=== PATIENT | male | born 1980 | race Caucasian/White ===

== ENCOUNTER 2023-12-29 13:37 | Inpatient (IN) | payer OTHER ==
[2023-12-29] MEDS ORDERED: ACETAMINOPHEN INJECTION 100 ML IVPB ONE (15:03)
[2023-12-29 15:06] LABS: BASO % 0.5 % (0-2.0); EOS % 1.1 % (0-4.5); HEMATOCRIT 44.8 % (35.4-49); HEMOGLOBIN 15.6 GM/dL (11.7-16.9); LYMPH % 18.4 % (8-40); MCH 29.4 pg (25.7-33.7); MCHC 34.9 g/dl (32.0-35.9); MEAN CELL VOLUME 84.3 fl (80-96); MEAN PLT VOLUME 9.3 fl (7.5-11.1); MONO % 9.2 % (3.8-10.2); NEUT % 70.8 % (42.8-82.8); PLATELET COUNT 238 10^3/uL (134-434); RBC 5.31 M/mm3 (4.00-5.60); RDW 13.6 % (11.9-15.9); WHITE BLOOD COUNT 14.8 K/mm3 (4.0-10.0)
[2023-12-29] MEDS: ACETAMINOPHEN 1000 MG/100 ML BAG IVPB ONE (15:08)
[2023-12-29 15:12] LABS: ACTIVATED PTT 32.9 SECONDS (25.2-36.5)
[2023-12-29 15:25] LABS: INR 1.07 (0.83-1.09); PROTHROMBIN TIME (PATIENT) 12.4 SEC (9.7-13.0)
[2023-12-29 15:36] LABS: POTASSIUM 4.1 mmol/L (3.5-5.1)
[2023-12-29 15:39] LABS: ALBUMIN 4.2 g/dl (3.4-5.0); BLOOD UREA NITROGEN 9.8 mg/dL (7-18); CALCIUM 9.9 mg/dL (8.5-10.1)
[2023-12-29 15:42] LABS: CREATININE 0.7 mg/dL (0.55-1.3)
[2023-12-29 15:44] LABS: BILIRUBIN,TOTAL 0.7 mg/dL (0.2-1); TOT PROT 8.2 g/dl (6.4-8.2)
[2023-12-29] MEDS ORDERED: CLINDAMYCIN 600MG PREMIX IVPB 600 MG/50 ML BAG IVPB ONE (17:30)
[2023-12-29] MEDS: CLINDAMYCIN 600MG PREMIX IVPB 600 MG/50 ML BAG IVPB ONE (17:37)
[2023-12-29] MEDS ORDERED: IBUPROFEN 600 MG TABLET (FP) PO ONE (18:09)
[2023-12-29] MEDS: IBUPROFEN 600 MG TABLET (FP) PO ONE (18:10)
[2023-12-29] MEDS ORDERED: ACETAMINOPHEN 500 MG TABLET (FP) PO PRN (21:58)
[2023-12-29] MEDS ORDERED: IBUPROFEN 600 MG TABLET (FP) PO PRN (21:59)
[2023-12-29] MEDS ORDERED: QUEtiapine FUMARATE 100 MG TABLET (FP) ONE (22:52)
[2023-12-29] MEDS: ALPRAZolam 1 MG TABLET PO SCH (22:53)
[2023-12-29] MEDS: BUPRENORPHINE/NALOXONE 8 MG/2 MG FILM PACKET SL SCH (22:53)
[2023-12-29] MEDS: QUEtiapine FUMARATE 300 MG TABLET PO SCH (22:53)
[2023-12-30] MEDS: CLINDAMYCIN 600MG PREMIX IVPB 600 MG/50 ML BAG IVPB SCH (01:07)
[2023-12-30] MEDS: ACETAMINOPHEN 325 MG TABLET (FP) PO PRN (01:07)
[2023-12-30] MEDS ORDERED: INSULIN (NOVOLOG) ASPART 100 UNITS/ML 10ML VIAL ONE ×2 (06:10→22:06)
[2023-12-30] MEDS: INSULIN ASPART SLIDING SCALE (NOVOLOG) 1 VIAL SQ SCH (06:11)
[2023-12-30 08:36] LABS: HEMATOCRIT 41.5 % (35.4-49); HEMOGLOBIN 14.2 GM/dL (11.7-16.9); MCH 29.2 pg (25.7-33.7); MCHC 34.3 g/dl (32.0-35.9); MEAN CELL VOLUME 85.1 fl (80-96); MEAN PLT VOLUME 9.3 fl (7.5-11.1); PLATELET COUNT 170 10^3/uL (134-434); RBC 4.87 M/mm3 (4.00-5.60); RDW 13.7 % (11.9-15.9); WHITE BLOOD COUNT 10.4 K/mm3 (4.0-10.0)
[2023-12-30 08:50] LABS: POTASSIUM 3.4 mmol/L (3.5-5.1)
[2023-12-30 08:53] LABS: ALBUMIN 3.6 g/dl (3.4-5.0); BLOOD UREA NITROGEN 10.2 mg/dL (7-18); MAGNESIUM 1.9 mg/dL (1.8-2.4)
[2023-12-30 08:55] LABS: CREATININE 0.6 mg/dL (0.55-1.3)
[2023-12-30 08:56] LABS: PHOSPHOROUS 3.6 mg/dL (2.5-4.9)
[2023-12-30 08:57] LABS: BILIRUBIN,TOTAL 0.6 mg/dL (0.2-1)
[2023-12-30] MEDS ORDERED: QUEtiapine FUMARATE 100 MG TABLET (FP) ONE ×2 (09:00→20:36)
[2023-12-30] MEDS ORDERED: QUEtiapine FUMARATE 300 MG TABLET PO SCH (10:00)
[2023-12-30] MEDS ORDERED: ALPRAZolam 1 MG TABLET PO SCH (10:00)
[2023-12-30] MEDS: POTASSIUM CHLORIDE TABS 20 MEQ TABLET.ER (FP) PO ONE (10:32)
[2023-12-30] MEDS: ENOXAPARIN NA (PORCINE) 40 MG/0.4 ML DISP.SYRIN SQ SCH (10:32)
[2023-12-30] MEDS: ACETAMINOPHEN 1000 MG/100 ML BAG IVPB PRN (12:32)
[2023-12-31] MEDS ORDERED: INSULIN (NOVOLOG) ASPART 100 UNITS/ML 10ML VIAL ONE ×4 (05:45→20:52)
[2023-12-31 08:17] LABS: BASO % 0.6 % (0-2.0); EOS % 3.6 % (0-4.5); HEMATOCRIT 39.9 % (35.4-49); HEMOGLOBIN 13.5 GM/dL (11.7-16.9); LYMPH % 33.1 % (8-40); MCHC 33.8 g/dl (32.0-35.9); MEAN CELL VOLUME 85.8 fl (80-96); MEAN PLT VOLUME 9.3 fl (7.5-11.1); MONO % 9.4 % (3.8-10.2); NEUT % 53.3 % (42.8-82.8); PLATELET COUNT 168 10^3/uL (134-434); RBC 4.64 M/mm3 (4.00-5.60); RDW 13.7 % (11.9-15.9); WHITE BLOOD COUNT 8.8 K/mm3 (4.0-10.0)
[2023-12-31 08:25] LABS: POTASSIUM 3.8 mmol/L (3.5-5.1)
[2023-12-31 08:58] LABS: CALCIUM 8.9 mg/dL (8.5-10.1)
[2023-12-31 08:59] LABS: ALBUMIN 3.2 g/dl (3.4-5.0); BLOOD UREA NITROGEN 11.5 mg/dL (7-18)
[2023-12-31 09:02] LABS: CREATININE 0.5 mg/dL (0.55-1.3)
[2023-12-31 09:03] LABS: BILIRUBIN,TOTAL 0.4 mg/dL (0.2-1); TOT PROT 6.6 g/dl (6.4-8.2)
[2023-12-31] MEDS ORDERED: QUEtiapine FUMARATE 100 MG TABLET (FP) ONE ×2 (09:11→20:53)
[2023-12-31] MEDS ORDERED: INSULIN (LEVEMIR) 100 UNITS/ML UNITS SQ ONE (11:31)
[2023-12-31] MEDS: INSULIN (LEVEMIR) 100 UNITS/ML UNITS SQ SCH ×2 (11:35→16:58)
[2023-12-31] MEDS ORDERED: KETOROLAC TROMETHAMINE 30 MG/1 ML VIAL IVPUSH PRN (12:10)
[2023-12-31 12:21] VITALS: BMI 33.7
[2023-12-31] MEDS: KETOROLAC TROMETHAMINE 30 MG/1 ML VIAL IVPUSH SCH (12:31)
[2023-12-31] MEDS: ACETAMINOPHEN 1000 MG/100 ML BAG IVPB PRN (16:56)
[2023-12-31] MEDS: CEFTRIAXONE 1 GM in DEXTROSE 5%-WATER - 50 ML IVPB SCH (18:14)
[2024-01-01 08:46] LABS: BASO % 0.5 % (0-2.0); EOS % 3.7 % (0-4.5); HEMATOCRIT 39.8 % (35.4-49); HEMOGLOBIN 13.8 GM/dL (11.7-16.9); LYMPH % 34.7 % (8-40); MCH 29.6 pg (25.7-33.7); MCHC 34.8 g/dl (32.0-35.9); MEAN PLT VOLUME 9.1 fl (7.5-11.1); MONO % 8.1 % (3.8-10.2); PLATELET COUNT 187 10^3/uL (134-434); RBC 4.68 M/mm3 (4.00-5.60); RDW 13.4 % (11.9-15.9)
[2024-01-01 09:04] LABS: POTASSIUM 3.7 mmol/L (3.5-5.1)
[2024-01-01 09:12] LABS: ALBUMIN 3.1 g/dl (3.4-5.0); BLOOD UREA NITROGEN 12.1 mg/dL (7-18); CALCIUM 8.9 mg/dL (8.5-10.1)
[2024-01-01 09:15] LABS: CREATININE 0.6 mg/dL (0.55-1.3)
[2024-01-01 09:17] LABS: BILIRUBIN,TOTAL 0.4 mg/dL (0.2-1); TOT PROT 6.6 g/dl (6.4-8.2)
[2024-01-01] MEDS ORDERED: INSULIN (LEVEMIR) 100 UNITS/ML UNITS SQ SCH (09:53)
[2024-01-01] MEDS: MULTIVITAMINS THER W-MINERALS COMBO TABLET (FP) PO SCH (10:21)
[2024-01-01] MEDS ORDERED: ONDANSETRON 4 MG/2 ML VIAL IVPUSH PRN ×2 (11:11→12:16)
[2024-01-01] MEDS ORDERED: PROPOFOL 20 ML ONE ×2 (11:15→11:31)
[2024-01-01] MEDS ORDERED: FENTANYL CITRATE/PF 50 MCG/ML VIAL ONE ×4 (11:16→11:34)
[2024-01-01] MEDS ORDERED: MIDAZOLAM HCL 2 MG/2 ML SINGLE DOSE VIAL ONE (11:16)
[2024-01-01] MEDS: CLINDAMYCIN 900 MG PREMIX BAG IVPB ONE (11:18)
[2024-01-01] MEDS: ACETAMINOPHEN 1000 MG/100 ML BAG IVPB ONE (12:12)
[2024-01-01] MEDS: cefTRIAXone SODIUM 1 GM VIAL ONE (12:41)
[2024-01-01] MEDS: LACTATED RINGERS SOLUTION 1,000 ML IV SCH ×2 (13:19→13:20)
[2024-01-01] MEDS: BUPRENORPHINE/NALOXONE 8 MG/2 MG FILM PACKET SL SCH (14:54)
[2024-01-01] MEDS ORDERED: INSULIN (NOVOLOG) ASPART 100 UNITS/ML 10ML VIAL ONE (16:58)
[2024-01-01] MEDS: INSULIN (LEVEMIR) 100 UNITS/ML UNITS SQ SCH (17:09)
[2024-01-01] MEDS: INSULIN ASPART SLIDING SCALE (NOVOLOG) 1 VIAL SQ SCH (17:10)
[2024-01-01] MEDS: CLINDAMYCIN 600MG PREMIX IVPB 600 MG/50 ML BAG IVPB SCH (18:14)
[2024-01-01] MEDS ORDERED: QUEtiapine FUMARATE 100 MG TABLET (FP) ONE (21:21)
[2024-01-01] MEDS: ALPRAZolam 1 MG TABLET PO SCH (22:08)
[2024-01-01] MEDS: QUEtiapine FUMARATE 100 MG TABLET (FP) PO SCH (22:17)
[2024-01-01] MEDS: QUEtiapine FUMARATE 300 MG TABLET PO SCH (22:45)
[2024-01-02] MEDS: ENOXAPARIN NA (PORCINE) 40 MG/0.4 ML DISP.SYRIN SQ SCH (09:38)
[2024-01-02] MEDS: MULTIVITAMINS THER W-MINERALS COMBO TABLET (FP) PO SCH (09:38)
[2024-01-02 10:22] LABS: BASO % 0.8 % (0-2.0); EOS % 5.4 % (0-4.5); HEMATOCRIT 41.1 % (35.4-49); HEMOGLOBIN 13.7 GM/dL (11.7-16.9); LYMPH % 34.6 % (8-40); MCH 28.7 pg (25.7-33.7); MCHC 33.3 g/dl (32.0-35.9); MEAN CELL VOLUME 86.1 fl (80-96); MEAN PLT VOLUME 9.3 fl (7.5-11.1); MONO % 8.5 % (3.8-10.2); NEUT % 50.7 % (42.8-82.8); PLATELET COUNT 196 10^3/uL (134-434); RBC 4.77 M/mm3 (4.00-5.60); RDW 13.6 % (11.9-15.9); WHITE BLOOD COUNT 7.9 K/mm3 (4.0-10.0)
[2024-01-02 10:36] LABS: POTASSIUM 3.9 mmol/L (3.5-5.1)
[2024-01-02] MEDS: CEFTRIAXONE 1 GM in DEXTROSE 5%-WATER - 50 ML IVPB SCH (10:36)
[2024-01-02 10:41] LABS: CALCIUM 9.1 mg/dL (8.5-10.1)
[2024-01-02 10:42] LABS: ALBUMIN 3.3 g/dl (3.4-5.0)
[2024-01-02 10:45] LABS: BILIRUBIN,TOTAL 0.4 mg/dL (0.2-1); CREATININE 0.6 mg/dL (0.55-1.3); TOT PROT 6.8 g/dl (6.4-8.2)
[2024-01-02] MEDS: ACETAMINOPHEN 1000 MG/100 ML BAG IVPB PRN (11:33)
[2024-01-02] MEDS ORDERED: INSULIN (NOVOLOG) ASPART 100 UNITS/ML 10ML VIAL ONE (16:51)
[2024-01-03 09:15] LABS: BASO % 0.8 % (0-2.0); HEMOGLOBIN 15.3 GM/dL (11.7-16.9); LYMPH % 35.8 % (8-40); MCH 29.5 pg (25.7-33.7); MCHC 34.7 g/dl (32.0-35.9); MONO % 9.1 % (3.8-10.2); NEUT % 49.3 % (42.8-82.8); PLATELET COUNT 234 10^3/uL (134-434); RBC 5.18 M/mm3 (4.00-5.60); RDW 13.7 % (11.9-15.9); WHITE BLOOD COUNT 8.4 K/mm3 (4.0-10.0)
[2024-01-03 09:56] LABS: ALBUMIN 3.8 g/dl (3.4-5.0); BLOOD UREA NITROGEN 13.7 mg/dL (7-18)
[2024-01-03 09:59] LABS: CALCIUM 9.3 mg/dL (8.5-10.1); CREATININE 0.7 mg/dL (0.55-1.3)
[2024-01-03 10:02] LABS: TOT PROT 7.4 g/dl (6.4-8.2)
[2024-01-03 10:05] LABS: BILIRUBIN,TOTAL 1.2 mg/dL (0.2-1)
[2024-01-03] MEDS ORDERED: INSULIN (NOVOLOG) ASPART 100 UNITS/ML 10ML VIAL ONE ×2 (11:32→16:38)
[2024-01-03 14:50] VITALS: RESP 18
[2024-01-03] MEDS: LACTOBACILLUS ACIDOPHILUS 1 TABLET PO SCH (15:03)
[2024-01-03] MEDS ORDERED: metFORMIN HCL 500 MG TABLET (FP) PO SCH (16:30)
[2024-01-03] MEDS ORDERED: INSULIN (LEVEMIR) 100 UNITS/ML UNITS SQ ONE (17:50)
[2024-01-04 04:48] VITALS: TEMP 97.9
[2024-01-04 07:01] LABS: BASO % 0.5 % (0-2.0); EOS % 3.2 % (0-4.5); HEMATOCRIT 42.8 % (35.4-49); HEMOGLOBIN 14.2 GM/dL (11.7-16.9); LYMPH % 25.4 % (8-40); MCH 28.5 pg (25.7-33.7); MCHC 33.2 g/dl (32.0-35.9); MEAN CELL VOLUME 85.9 fl (80-96); MEAN PLT VOLUME 8.8 fl (7.5-11.1); MONO % 10.1 % (3.8-10.2); NEUT % 60.8 % (42.8-82.8); PLATELET COUNT 209 10^3/uL (134-434); RBC 4.98 M/mm3 (4.00-5.60); RDW 13.5 % (11.9-15.9); WHITE BLOOD COUNT 11.1 K/mm3 (4.0-10.0)
[2024-01-04 07:17] LABS: POTASSIUM 3.8 mmol/L (3.5-5.1)
[2024-01-04 07:19] LABS: BLOOD UREA NITROGEN 15.1 mg/dL (7-18); CALCIUM 9.2 mg/dL (8.5-10.1)
[2024-01-04 07:22] LABS: CREATININE 0.7 mg/dL (0.55-1.3)
[2024-01-04 08:44] VITALS: BP 140/74; PULSE 91
[2024-01-04 10:04] LABS: ALBUMIN 3.6 g/dl (3.4-5.0)
[2024-01-04 10:07] LABS: BILIRUBIN,DIRECT 0.1 mg/dL (0.0-0.2)
[2024-01-04 10:09] LABS: BILIRUBIN,TOTAL 0.5 mg/dL (0.2-1); TOT PROT 7.1 g/dl (6.4-8.2)
[2024-01-04] MEDS ORDERED: INSULIN (LEVEMIR) 100 UNITS/ML UNITS SQ ONE (16:52)
== END 2024-01-04 18:33 | disposition home or self-care (01) | DRG 364 ==
LOC: JER 13:37 → JERBED 18:21 → J8W 22:29 → J6S 01-03 18:35
PROVIDERS: ADMIT Internal Medicine; ATTEND Internal Medicine
PROC: 0W920ZZ Drainage of Face, Open Approach (ICD-10-PCS; principal; 2024-01-01 15:30)
DX: L03.211 Cellulitis of face (principal); F32.A Depression, unspecified; E11.9 Type 2 diabetes mellitus without complications; F11.11 Opioid abuse, in remission; L02.01 Cutaneous abscess of face; A49.02 Methicillin resistant Staphylococcus aureus infection, unspecified site; F17.210 Nicotine dependence, cigarettes, uncomplicated; F39 Unspecified mood [affective] disorder; E66.9 Obesity, unspecified; Z68.33 Body mass index [BMI] 33.0-33.9, adult; F41.8 Other specified anxiety disorders
CPT/HCPCS: 36415; 70487-TC; 80048; 80053; 80076; 82962; 83036; 83735; 84100; 85025; 85027; 85610; 85730; 86850; 86900; 86901; 87040; 87070; 87081; 87186; 87205; 94760; 99285-25; J0131